=== PATIENT | male | born 1945 | race Caucasian/White ===

== ENCOUNTER 2018-11-21 21:51 | Emergency (ER) | payer MEDICARE, BC ==
[~2018-11-21] VITALS: Ht 172.7 cm; Wt 72.6 kg
[2018-11-21] MEDS ORDERED: METFORMIN HCL500 MG PO (22:24)
[2018-11-21] MEDS ORDERED: NEURONTIN600 MG PO (22:24)
[2018-11-21] MEDS ORDERED: ZOCOR20 MG PO (22:25)
[2018-11-21] MEDS ORDERED: ELIQUIS5 MG PO (22:25)
[2018-11-21] MEDS ORDERED: KAPSPARGO SPRIN25 MG PO (22:25)
[2018-11-21] MEDS ORDERED: ALLOPURINOL 10100 M1 PO (22:26)
[2018-11-21] MEDS ORDERED: SYNTHROID150 MCG PO (22:26)
[2018-11-21] MEDS ORDERED: WELLBUTRIN 75 M75 M1 PO (22:26)
[2018-11-21] MEDS ORDERED: NAPROSYN500 MG PO (22:26)
[2018-11-21] MEDS ORDERED: FLOMAX0.4 MG PO (22:27)
[2018-11-22 00:45] VITALS: BP 137/68
== END 2018-11-22 00:38 | disposition home or self-care (01) ==
LOC: M.ERS 21:51
DX: S61.214A Laceration without foreign body of right ring finger without damage to nail, initial encounter (principal); S81.812A Laceration without foreign body, left lower leg, initial encounter; W26.8XXA Contact with other sharp object(s), not elsewhere classified, initial encounter; Y93.64 Activity, baseball; Y92.89 Other specified places as the place of occurrence of the external cause; Y99.8 Other external cause status